=== PATIENT | male | born 1955 | race African-American/Black ===

== ENCOUNTER 2019-08-24 14:15 | Emergency (ER) | payer OTHER, SELFPAY ==
[2019-08-24 14:30] VITALS: BP 195/92; PULSE 95; RESP 15; TEMP 36.5; O2SAT 100
--- NOTE | 2019-08-24 14:57 | ED_ITS ---
HPI - Extremity Injury (Upper) General Chief Complaint: Extremity Injury, Upper Stated Complaint: arm swelling Time Seen by Provider: 08/24/19 14:32 History of Present Illness HPI narrative: Pain, swelling, redness on the extensor surface of the right elbow for a few days. worse with moement. No trauma. He has never had this before. He denies systemic symptoms. Related Data Allergies Allergy/AdvReac Type Severity Reaction Status Date / Time Penicillins Allergy Mild Unknown Verified 08/24/19 14:35 Review of Systems Review of Systems: All systems reviewed & are unremarkable except as noted in HPI and below Constitutional: Constitutional: Denies fever(s) Cardiovascular: Cardiovascular: Denies chest pain Respiratory: Respiratory: Denies dyspnea Gastrointestinal: Gastrointestinal: Denies nausea Musculoskeletal: Musculoskeletal: Denies back pain Neurologic: Denies numbness and Denies weakness FOR[facility] Social History Social History Gender identity (if verbalized by the patient): Female Exam Const: General: healthy appearing, no acute distress and alert Orientation/consciousness: patient oriented x3 HENMT: Head: normal to inspection Resp: Effort & Inspection: normal respiratory effort Auscultation: clear to auscultation bilaterally Cardio: Rate: regular rate Rhythm: regular rhythm Skin: General skin exam: normal color Neuro: General: patient oriented x3, moves all extremities and CN's II-XI intact bilaterally Speech: normal speech Extrem: Other: erythema and induration over extensor surface of right elbow. mild limitation in ROM due to pain Course Vital Signs Vital signs: Vital Signs Temperature 36.5 C 08/24/19 14:30 Pulse Rate 95 08/24/19 14:30 Respiratory Rate 15 08/24/19 14:30 Blood Pressure 195/92 H 08/24/19 14:30 Pulse Oximetry 100 08/24/19 14:30 Temperature 36.5 C 08/24/19 14:30 Pulse Rate 75 08/24/19 15:34 Respiratory Rate 27 H 08/24/19 15:34 Blood Pressure 153/97 H 08/24/19 15:34 Pulse Oximetry 99 08/24/19 15:34 MDM - Extremity Injury (Upper) MDM Narrative Medical decision making narrative: He has obvious cellulitis over the the right elbow. Joint involvement is possible, although unlikely given that he tolerates movement there quite well. He is not a good candidate for arthrocentesis at this time anyway since the skin over the puncture site is clearly involved. I will trial him on PO antibiotics and have him return if not improving. Medical Records Attestation: I reviewed the patient's medical records. Discharge Plan Discharge Clinical Impression: Cellulitis of right elbow Patient Disposition: Home, Self-Care Condition: Stable Instructions: Antibiotic Form, Cellulitis (ED) Prescriptions: New cephalexin [Keflex] 500 mg capsule 500 mg PO Q8H Qty: 21 RF: 0 Follow-up/Referrals: Blayne Willett MD [Primary Care Provider] - 1 Week Discharge Date/Time: 08/24/19 15:36
[2019-08-24] MEDS: CEPHALEXIN 500 MG CAPSULE PO (15:33)
[2019-08-24 15:34] VITALS: BP 153/97; PULSE 75; RESP 27; O2SAT 99
== END 2019-08-24 15:36 | disposition home or self-care (01) ==
PROVIDERS: Emergency Provider Emergency Medicine; PCP Family Medicine Adolescent Medicine
DX: L03.113 Cellulitis of right upper limb (principal)
CPT/HCPCS: 99283; A9270

== ENCOUNTER 2021-04-01 08:54 | Outpatient (CLI) | payer OTHER, SELFPAY ==
--- NOTE | 2021-04-01 11:00 | NEURO_ITS ---
Impression: # Complains of numbness of hands. # Bilateral Carpal Tunnel Syndrome. # Left ulnar neuropathy across the elbow. # Neurogenic changes noted on needle/EMG exam. Nerve Conduction Studies Anti Sensory Summary Table Stim Site NR Peak (ms) P-T Amp (?V) Site1 Site2 Delta-P (ms) Dist (cm) Chau (m/s) Left Median Anti Sensory (2-3nd Digit) Wrist 4.5 17.8 Wrist 2-3nd Digit 4.5 14.0 31 Wrist 4.7 17.3 Wrist 2-3nd Digit 4.5 14.0 31 Right Median Anti Sensory (2-3nd Digit) Wrist 4.6 16.9 Wrist 2-3nd Digit 4.6 14.0 30 Wrist 4.5 18.2 Wrist 2-3nd Digit 4.6 14.0 30 Left Radial Anti Sensory (Base 1st Digit) Wrist 2.5 19.9 Wrist Base 1st Digit 2.5 0.0 Right Radial Anti Sensory (Base 1st Digit) Wrist 3.2 10.8 Wrist Base 1st Digit 3.2 0.0 Left Ulnar Anti Sensory (5th Digit) Wrist 3.9 27.8 Wrist 5th Digit 3.9 14.0 36 Right Ulnar Anti Sensory (5th Digit) Wrist 4.1 21.6 Wrist 5th Digit 4.1 14.0 34 Motor Summary Table Stim Site NR Onset (ms) O-P Amp (mV) Site1 Site2 Delta-0 (ms) Dist (cm) Chau (m/s) Left Median Motor (Abd Poll Brev) Wrist 4.4 2.5 Elbow Wrist 6.3 32.0 51 Elbow 10.7 1.2 Right Median Motor (Abd Poll Brev) Wrist 4.4 5.4 Elbow Wrist 6.1 33.0 54 Elbow 10.5 5.1 Left Ulnar Motor (Abd Dig Minimi) Wrist 3.4 7.2 A Elbow Wrist 6.4 33.0 52 A Elbow 9.8 5.1 B Elbow Wrist 5.6 27.0 48 B Elbow 9.0 6.7 Right Ulnar Motor (Abd Dig Minimi) Wrist 3.4 6.1 A Elbow Wrist 6.4 32.0 50 A Elbow 9.8 4.5 F Wave Studies NR F-Lat (ms) L-R F-Lat (ms) Left Median (Mrkrs) (Abd Poll Brev) 34.43 0.66 Right Median (Mrkrs) (Abd Poll Brev) 35.09 0.66 Left Ulnar (Mrkrs) (Abd Dig Min) 36.00 0.00 Right Ulnar (Mrkrs) (Abd Dig Min) 36.00 0.00 EMG Side Muscle Nerve Root Ins Act Fibs Amp Dur Recrt Comment Right 1stDorInt Ulnar C8-T1 Nml Nml Nml Nml Nml Right Ext Indicis Radial (Post Int) C7-8 Nml Nml Nml Nml Nml Right Ext Digitorum Radial (Post Int) C7-8 Nml Nml Nml Nml Nml Right BrachioRad Radial C5-6 Nml Nml Nml Nml Nml Right PronatorTeres Median C6-7 Nml Nml Nml Nml Nml Right Abd Poll Brev Median C8-T1 Nml Nml Nml >12ms Reduced Left 1stDorInt Ulnar C8-T1 Nml Nml Nml >12ms Reduced Left Ext Indicis Radial (Post Int) C7-8 Nml Nml Nml Nml Nml Left Ext Digitorum Radial (Post Int) C7-8 Nml Nml Nml Nml Nml Left BrachioRad Radial C5-6 Nml Nml Nml Nml Nml Left PronatorTeres Median C6-7 Nml Nml Nml Nml Nml Left Abd Poll Brev Median C8-T1 Nml Nml Nml >12ms Reduced Right ABD Dig Min Ulnar C8-T1 Nml Nml Nml Nml Nml Left ABD Dig Min Ulnar C8-T1 Nml Nml Nml >12ms Reduced Right Abd Poll Long Radial (Post Int) C7-8 Nml Nml Nml Nml Nml Left Abd Poll Long Radial (Post Int) C7-8 Nml Nml Nml Nml Nml MTDD
== END 2021-04-01 08:55 | disposition home or self-care (01) ==
LOC: ANHNEURO 09:00
PROVIDERS: PCP Family Medicine Adolescent Medicine; Visit Provider Plastic Surgery
DX: G56.03 Carpal tunnel syndrome, bilateral upper limbs (principal); G56.22 Lesion of ulnar nerve, left upper limb
CPT/HCPCS: 95886; 95911

== ENCOUNTER 2022-11-09 11:34 | Emergency (ER) | payer OTHER, SELFPAY ==
--- NOTE | ~2022-11-09 | CT_ITS ---
EXAMINATION: CT abdomen pelvis w con DATE: 11/09/2022 12:39 INDICATION: Right lower quadrant abdominal pain. Right flank pain. TECHNIQUE: Computed tomography (CT) of the abdomen and pelvis was performed with 100 mL Omnipaque 350 intravenous contrast. Automated exposure control and iterative reconstruction technique were employe d. The dose-length product was 209.16 mGy-cm. COMPARISON: None. FINDINGS: The visualized portions of the lung bases demonstrate mild atelectasis. No pleural effusion . The heart size is normal. There are coronary artery calcifications. No pericardial effusion. The li timothy, gallbladder, spleen, pancreas, adrenal glands, and kidneys are normal. There is calcified athero sclerosis of the aorta and many of the other arteries. There are no dilated loops of bowel. The appen daily is normal. There are no pathologically enlarged lymph nodes. There is no free intraperitoneal flu id. There is mild lumbar spondylosis. IMPRESSION: 1. No etiology for the patient's symptoms. Reviewed, dictated and finalized at location A.
[2022-11-09 11:37] VITALS: BP 205/81; PULSE 79; RESP 16; TEMP 36.6; O2SAT 100
[2022-11-09 12:07] LABS: Basophils Percent Auto 0.5 % (0.2-1.2); Eosinophils Absolute Auto 0.1 K/mm3 (0-0.3); Eosinophils Percent Auto 2.4 % (0-4.4); Hematocrit 37.9 % (42.0-52.0); Hemoglobin 12.6 g/dL (14.0-18.0); Immature Granulocyte Absolute 0.01 K/mm3 (0.00-0.031); Immature Granulocyte Percent A 0.2 % (0-0.5); Lymphocytes Absolute Auto 1.95 K/mm3 (0.9-3.2); Lymphocytes Percent Auto 46.9 % (18.3-44.2); Mean Corpuscular HGB Conc 33.2 g/dl (32-36); Mean Corpuscular Hemoglobin 27.8 pg (26-34); Mean Corpuscular Volume 83.5 fl (80-100); Mean Platelet Volume 10.9 fl (7.4-10.4); Monocytes Absolute Auto 0.7 K/mm3 (0.1-0.6); Monocytes Percent Auto 15.9 % (2.6-8.5); Neutrophils Absolute Auto 1.4 K/mm3 (1.3-6.7); Neutrophils Percent Auto 34.1 % (45.5-73.1); Platelet Count Result 229 k/mm3 (150-375); Red Blood Count 4.54 M/mm3 (4.6-6.20); Red Cell Distribution Width 14.6 % (11.5-14.5); White Blood Count 4.2 K/mm3 (4.5-10.0)
[2022-11-09 12:18] LABS: Alanine Aminotransferase 21 U/L (6-50); Albumin Level 4.3 g/dL (3.5-5.1); Alkaline Phosphatase 62 U/L (38-126); Anion Gap 5 mmol/L (8-16); Aspartate Amino Transferase 26 U/L (17-59); Bilirubin,Total 0.4 mg/dL (0.2-1.3); Blood Urea Nitrogen 21 mg/dL (9-20); Calcium 9.4 mg/dL (8.4-10.2); Carbon Dioxide 31 mmol/L (22-30); Chloride 99 mmol/L (98-107); Estimated CRCL calculation 45 ml/min; Estimated Glomerular Filt Rate > 60; Glucose 130 mg/dL (65-110); Potassium 3.5 mmol/L (3.4-5.0); Sodium 135 mmol/L (137-145)
--- NOTE | 2022-11-09 12:38 | ED.ABDPAIN ---
HPI - Abdominal Pain General Chief Complaint: Abdominal Pain Stated Complaint: abd pain Time Seen by Provider: 11/09/22 11:39 History of Present Illness HPI narrative: 67-year-old male presented the ED for evaluation of right lower quadrant pain. Patient reports that the pain has been intermittent since Tuesday. Patient denies any pain with urination, denies any prior surgical history and denies any associated nausea or vomiting. Related Data Allergies Allergy/AdvReac Type Severity Reaction Status Date / Time Penicillins Allergy Mild Unknown Verified 03/25/22 13:23 Review of Systems Review of Systems: All systems reviewed & are unremarkable except as noted in HPI and below PMFSH Social History Social History (Updated 03/23/22 @ 11:25 by Lon Chun [facility]) Smoking status: Current every day smoker Tobacco type: cigarettes Alcohol intake: current Alcohol use details: 1 to 2 times a week Substance use: never Gender identity (if verbalized by the patient): Male Exam Narrative: APPEARANCE: Well appearing, no pain, no distress, well-nourished. HEAD: normocephalic, atraumatic. EYES: PERRLA/EOMI, conjunctivae clear. NOSE: Normal no drainage NECK: Supple. No adenopathy, no masses. RESPIRATORY: Airway patent, respirations nonlabored. Clear to auscultation bilaterally, no rales, rhonchi, wheezing. CARDIOVASCULAR: Regular rate and rhythm without murmurs rubs or gallops. ABDOMINAL: Lower quadrant tenderness to palpation MUSCULOSKELETAL: Moves all extremities. Strength/ROM intact, No edema, No calf tenderness. NEURO: Alert. Cranial nerves II through XII intact. Good gait. Good coordination SKIN: Warm, dry. Normal Color PSYCHIATRIC: Normal affect/mood. Course Course Emergency Course: 67-year-old male presented ED for evaluation of right lower quadrant pain. Based on labs were ordered along with a CT abdomen pelvis in order to evaluate for acute appendicitis. Patient is afebrile with no leukocytosis, patient's CMP is similar to his baseline. UA shows no evidence of infection. CT scan showed no etiology for the patient's symptoms. Vital Signs Vital signs: Vital Signs Temperature 97.9 F 11/09/22 11:37 Pulse Rate 79 11/09/22 11:37 Respiratory Rate 16 11/09/22 11:37 Blood Pressure 205/81 H 11/09/22 11:37 Pulse Oximetry 100 11/09/22 11:37 Oxygen Delivery Room Air 11/09/22 11:37 Temperature 97.9 F 11/09/22 11:37 Pulse Rate 73 11/09/22 14:50 Respiratory Rate 15 11/09/22 14:50 Blood Pressure 168/82 H 11/09/22 14:50 Pulse Oximetry 99 11/09/22 14:50 Oxygen Delivery Room Air 11/09/22 11:37 MDM - Abdominal Pain Differential Diagnosis Differential diagnosis: Likely abdominal pain Lab Data Attestation: I reviewed the patient's lab results. 11/09/22 12:01 11/09/22 12:01 Labs: Lab Results 11/09/22 11/09/22 Range/Units 12:01 13:53 WBC 4.2 L (4.5-10.0) K/mm3 RBC 4.54 L (4.6-6.20) M/mm3 Hgb 12.6 L (14.0-18.0) g/dL Hct 37.9 L (42.0-52.0) % MCV 83.5 (80-100) fl MCH 27.8 (26-34) pg MCHC 33.2 (32-36) g/dl RDW 14.6 H (11.5-14.5) % Plt Count 229 (150-375) k/mm3 MPV 10.9 H (7.4-10.4) fl Immature Gran % (Auto) 0.2 (0-0.5) % Neut % (Auto) 34.1 L (45.5-73.1) % Lymph % (Auto) 46.9 H (18.3-44.2) % Bradley % (Auto) 15.9 H (2.6-8.5) % Eos % (Auto) 2.4 (0-4.4) % Baso % (Auto) 0.5 (0.2-1.2) % Lymph # (Auto) 1.95 (0.9-3.2) K/mm3 Bradley # (Auto) 0.7 H (0.1-0.6) K/mm3 Eos # (Auto) 0.1 (0-0.3) K/mm3 Baso # (Auto) 0.0 (0.0-0.1) K/mm3 Abs Immat Gran (auto) 0.01 (0.00-0.031) K/mm3 Absolute Neuts (auto) 1.4 (1.3-6.7) K/mm3 Absolute Nucleated RBC 0.0 (0.0-0.012) K/mm3 Nucleated RBC % 0.0 (0.0-0.2) % Sodium 135 L (137-145) mmol/L Potassium 3.5 (3.4-5.0) mmol/L Chloride 99 (98-107) mmol/L Carbon Dioxide 31 H (22-30) mmol/L Anion Gap 5 L (8-16)
[2022-11-09 13:59] LABS: Appearance Urine Clear (Clear); Bilirubin Urine Negative (Negative); Blood Urine Negative (Negative); Color Urine Yellow (Yellow); Glucose Urine UA Negative (Negative); Ketones Urine Negative (Negative); Leukocyte Esterase Ur Negative LEU/UL (Negative); Nitrate Urine Negative (Negative); Protein Urine Negative (Negative)
[2022-11-09 14:10] LABS: Specific Grav Ur 1.047 (1.001-1.035)
[2022-11-09 14:13] LABS: Add Urine Microscopic? NO
[2022-11-09 14:50] VITALS: BP 168/82; PULSE 73; RESP 15; O2SAT 99
== END 2022-11-09 14:51 | disposition home or self-care (01) ==
PROVIDERS: Emergency Provider Emergency Medicine; PCP Family Medicine Adolescent Medicine
DX: R10.31 Right lower quadrant pain (principal); F17.210 Nicotine dependence, cigarettes, uncomplicated
CPT/HCPCS: 36415; 74177; 80053; 81003; 85025; 99284; Q9967

== ENCOUNTER 2023-01-11 05:47 | Day surgery (SDC) | payer OTHER, SELFPAY ==
[2023-01-05 10:38] VITALS: BMI 19.5
[2023-01-11] VITALS (10 sets, daily range): BP systolic 108–169; BP diastolic 59–94; PULSE 59–78; RESP 7–20; TEMP 36.5–37.3; O2SAT 96–100
--- NOTE | 2023-01-11 07:31 | WPDHPUPDATE1 ---
History and Physical Update Update Date/Time: 01/11/23 07:31 History and Physical has been reviewed, including an updated exam of the patient. There are NO changes in the patient's condition. Risks, benefits, and alternatives have been discussed and questions answered. Patient agrees to proceed with procedure.
--- NOTE | 2023-01-11 09:56 | P.PNAN_ITS ---
Anes - Initial Pre Proc Eval Procedure: Operation Date: 01/11/23 08:30 Proposed Procedures p Left Open Carpal Release and Ulnar Neuroplasty at Elbow - Marek Dupont MD Date/Time: 01/11/23 09:56 Surgeon: Marek Dupont MD Pre Op Diagnosis: Left Carpal and Cubital Tunnel Syndrome Patient Data Age: 67 Gender: M Height: 1.8 m Weight: 61.3 kg Allergies Allergy/AdvReac Type Severity Reaction Status Date / Time Penicillins Allergy Mild Unknown Verified 01/11/23 07:37 Home Medications Medication Instructions Recorded Confirmed Type lisinopril 20 1 tablet PO DAILY #90 tabs 03/25/22 01/11/23 Rx mg-hydrochlorothiazide 25 mg tablet sildenafil 100 mg tablet 100 mg PO DAILY PRN sexual 03/25/22 01/11/23 Rx activity #10 tabs hydrocodone 7.5 mg-acetaminophen 1 tablet PO QID PRN pain #120 tabs 10/12/22 01/11/23 Rx 325 mg tablet Patient hx anesthesia problems: none Family hx anesthesia problems: none Results Review: All pre-operative results and documents have been reviewed as part of the pre- operative evaluation. [facility] Social History Social History Smoking status: Current every day smoker Tobacco type: cigarettes Second hand tobacco smoke exposure: No Alcohol intake: current Alcohol use details: weekends Substance use: never Substance use type: does not use Living arrangements: with family Gender identity (if verbalized by the patient): Male Spiritual care concerns: No Anes - Eval Final PreProcedure Day of Procedure 01/11/23 09:56 Patient weight: normal Heart: regular rate and rhythm Lungs: decreased breath sounds Airway: Mallampati scale class II Neurological: alert and oriented Last oral intake: >/= 8 hours ASA classification: III Emergent: no Anesthetic plan: proceed Anesthesia type and monitoring: general GIVS and standard monitoring Results Review: All pre-operative results and documents have been reviewed as part of the pre- operative evaluation. Informed Consent: The patient's anesthetic plan and its attendant risks and benefits were discussed with the patient/family/POA. Questions were solicited and answers p rovided to the satisfaction of the patient/family/POA.
[2023-01-11] MEDS: LACTATED RINGERS 1,000 ML 30 ML IV CONT (09:58)
[2023-01-11] MEDS: LIDO 1%/EPINEPHRINE 1:100,000 50 ML VIAL 10 ML INFILTRATE (10:23)
--- NOTE | 2023-01-11 11:05 | W.PM.PROC2 ---
Procedure Note - Detailed Date of Procedure 01/11/23 Pre-op Diagnosis Left Carpal and Cubital Tunnel Syndrome Post-op Diagnosis Same Procedure Performed left open carpal tunnel release and left ulnar neuroplasty at the elbow Surgeon Marek Dupont MD [employer] [facility] [place], [place] Description of Procedure the left carpal tunnel site and the left cubital tunnel sites were marked on the patient in the holding area. His questions were answered it is noted that he has hydrocodone 7.5/325 available home a regular plan through his primary care physician. The patient was taken to the operating room where he was placed supine on the operating table. He was given IV sedation. The left upper extremity was prepped and draped in usual fashion. The 2 sites were marked for the incision and locally infiltrated with 1% lidocaine with epinephrine. Extremity was exsanguinated with an Esmarch and the tourniquet inflated 250 mmHg. Incision was made on the palm as marked blunt dissection through the subcutaneous tissue revealed the palmar aponeurosis. This and the transverse retinaculum were incised with a 15. Blade. Area 3 point retraction the ligament was divided distally and proximally to completely release it. There was no unusual anatomy noted. the skin was closed with interrupted 4-0 nylon suture. Attention was turned to the elbow this was flexed and supported on folded towels. The incision was made as marked and dissection through the subcutaneous tissue revealed very minimal subcutaneous tissue. The ulnar nerve was a easily identified just behind the medial epicondyle. It was dissected free for about 3 in noting no obvious compression site. More distally Rojas ligament was identified and divided. Again it did not appear the this would be a site of compression. This dissection was continued on through the flexor muscle fascia distally. The nerve not subluxate. The tourniquet was released the site examined for bleeding points which were coagulated. The wound was closed with intradermal 3-0 Monocryl sutures at the cross hatching theodore and a running intradermal 3-0 Monocryl to close the skin. The usual bandages were applied at both surgical sites. The patient was discharged from the operating stable condition. No prescriptions were written today. Estimated Blood Loss 5 Drains No Packing No Pathology None sent Complications No immediate complications Condition Stable Disposition PACU
--- NOTE | 2023-01-11 12:03 | WPDANESPN ---
Anes - Prog Note Post-Op Date/Time: 01/11/23 12:03 Cardiovascular status: normal Respiratory status: normal Airway patency: baseline Mental status: baseline Post-Op hydration status: normal Vital Signs: Last Vital Signs Temp 36.5 C 01/11/23 11:03 Pulse 65 01/11/23 11:51 Resp 18 01/11/23 11:51 BP 161/94 H 01/11/23 11:51 Pulse Ox 96 01/11/23 11:51 O2 Del Method Room Air 01/11/23 11:51 O2 Flow Rate 10 01/11/23 11:23 Pain Score (VAS): 0 Given narcan around 1100. Discharge at 1300. I/O: Intake & Output 01/10/23 01/11/23 01/11/23 23:59 07:59 15:59 Intake Total 600 Balance 600 Patient Feedback: Patient satisfied with anesthetic care.
== END 2023-01-11 13:22 | disposition home or self-care (01) ==
PROVIDERS: PCP Family Medicine Adolescent Medicine; Visit Provider Plastic Surgery
PROC: (CPT 64721; principal; 2023-01-11 08:30)
DX: G56.22 Lesion of ulnar nerve, left upper limb (principal); G56.02 Carpal tunnel syndrome, left upper limb
CPT/HCPCS: 64718; 64721

== ENCOUNTER 2023-04-25 13:58 | Outpatient (CLI) | payer OTHER, SELFPAY ==
--- NOTE | ~2023-04-25 | XR_ITS ---
XR wrist RT min 3V DATE: 04/25/2023 14:18 INDICATION: Osteoarthritis of right wrist. Pain. Trauma. TECHNIQUE: 4 views COMPARISON: None FINDINGS: There is polyarticular osteoarthritis, including joint space narrowing and subarticular deg enerative cyst at the radiolunate joint, severe osteoarthritic joint space narrowing and medial sublu xation at the second metacarpophalangeal joint. No fracture or dislocation, periosteal reaction or bone destruction. IMPRESSION: Polyarticular osteoarthritis Reviewed, dictated and finalized at location B. RVISOR SAMPLE
== END 2023-04-25 13:59 | disposition home or self-care (01) ==
LOC: ANHIMG 14:00
PROVIDERS: PCP Family Medicine Adolescent Medicine; Visit Provider Plastic Surgery
DX: M19.031 Primary osteoarthritis, right wrist (principal)
CPT/HCPCS: 73110